=== PATIENT | male | born 1980 | race Native Hawaiian/Other Pacific Islander ===

== ENCOUNTER 2017-04-21 13:42 | Emergency (ER) | payer OTHER ==
[~2017-04-21] VITALS: Ht 188 cm; Wt 108.9 kg
== END 2017-04-21 16:09 | disposition home or self-care (01) ==
LOC: ED 13:42
DX: S90.31XA Contusion of right foot, initial encounter (principal); W22.8XXA Striking against or struck by other objects, initial encounter; Y93.89 Activity, other specified; Y92.89 Other specified places as the place of occurrence of the external cause; Y99.8 Other external cause status
CPT/HCPCS: 96372; 99282; J1885

== ENCOUNTER 2017-04-24 16:52 | Emergency (ER) | payer OTHER ==
[~2017-04-24] VITALS: Ht 188 cm; Wt 108.9 kg
[2017-04-24 18:02] LABS: PLATELET COUNT 255 K/uL (142-355)
[2017-04-24 18:08] LABS: POTASSIUM 4.1 mmol/L (3.6-5.2); SODIUM 139 mmol/L (136-145)
== END 2017-04-24 19:43 | disposition home or self-care (01) ==
LOC: ED 16:52
PROVIDERS: Family Medicine
DX: M25.461 Effusion, right knee (principal); M79.671 Pain in right foot; M25.571 Pain in right ankle and joints of right foot; M10.9 Gout, unspecified; W20.8XXA Other cause of strike by thrown, projected or falling object, initial encounter; Y92.098 Other place in other non-institutional residence as the place of occurrence of the external cause
CPT/HCPCS: 36415; 80053; 84550; 85027; 85651; 96372; 99283; J1885; J2930